=== PATIENT | female | born 1995 | race American Indian/Alaskan Native ===

== ENCOUNTER 2019-07-11 19:18 | Emergency (ER) | payer SELFPAY ==
--- NOTE | 2019-07-11 20:34 | Event Note ---
ED Screening Note Date of service: 07/11/19 Time: 20:32 ED Screening Note: 23 y/o female comes in for abd pain, headache. N/V. LMP 06/11/19. This initial assessment/diagnostic orders/clinical plan/treatment(s) is/are subject to change based on patients health status, clinical progression and re- assessment by fellow clinical providers in the ED. Further treatment and workup at subsequent clinical providers discretion. Patient/guardian urged not to elope from the ED as their condition may be serious if not clinically assessed and managed. Initial orders include:
[2019-07-11 21:10] LABS: Basophils % (Auto) 0.3 % (0.0-1.8); Eosinophils % (Auto) 0.5 % (0.0-4.3); Hematocrit 34.9 % (30.3-42.9); Hemoglobin 11.5 gm/dl (10.1-14.3); Lymphocytes # (Auto) 2.5 K/mm3 (1.2-5.4); Mean Corpuscular HGB Conc 33 % (30-34); Mean Corpuscular Volume 85 fl (79-97); Monocytes # (Auto) 0.3 K/mm3 (0.0-0.8); Monocytes % (Auto) 4.8 % (0.0-7.3); Platelet Count 277 K/mm3 (140-440); Red Blood Count 4.08 M/mm3 (3.65-5.03); Red Cell Distribution Width 14.1 % (13.2-15.2)
[2019-07-11 21:13] LABS: Alanine Aminotransferase 11 units/L (7-56); BUN/Creatinine Ratio 14; Blood Urea Nitrogen 11 mg/dL (7-17); Calcium 8.8 mg/dL (8.4-10.2); Hemolysis Index 1
[2019-07-11 21:32] LABS: Bilirubin,Urine NEG (Negative); Blood,Urine NEG (Negative); Color,Urine Yellow (Yellow); Mucus,Urine 1+ /HPF
--- NOTE | 2019-07-11 22:21 | Emergency Department Report ---
ED General Adult HPI - General Chief complaint: Headache Stated complaint: HEADACHE, NV,ABD PAIN Time Seen by Provider: 07/11/19 20:32 Source: patient Mode of arrival: Ambulatory Limitations: No Limitations - History of Present Illness Initial comments: This is a 23-year-old female. This patient does not smoke to this provider previously. She states that she is not . He states that she has not delivered a given within the past 6 weeks. The patient denies DVT, pulmonary embolism risk factors. The patient presents with 2 complaints. Her first complaint is headache. The headache has been present for approximately 36 hours. The headache is initially global, and is now frontal and bitemporal. The headache has been intermittent since the past day and a half. The headache is not sudden or thunderclap in nature. The headache is not maximal in intensity. She reports a worse headache last year. There is no loss of vision or fever. There is no sore throat. There is no neck pain or neck stiffness. There is no trauma. The patient reports being on her cell phone at least 6 hours per day. She reports that she is up-to-date with visual examinations. She reports that she does not smoke or consume marijuana. She reports that she gets regular sleep. She denies extremity weakness, numbness. The patient's second complaint is belly pain abdominal pain is in epigastric and right upper quadrant region. It is achy and sharp, increases with palpation and decreases with rest. It does not radiate anywhere. Positive intermittent nausea and vomiting. No urinary symptoms. -: Gradual, hour(s), days(s) Location: head, abdomen Radiation: other Severity scale (0 -10): 8 Quality: other Consistency: other Improves with: other Worsens with: other Associated Symptoms: other - Related Data Previous Rx's Medication Instructions Recorded Last Taken Type Acetaminophen [Non-Aspirin Extra 500 mg PO Q6HR PRN #30 tablet 07/12/19 Unknown Rx Strength] Famotidine [Pepcid] 20 mg PO BID #30 tablet 07/12/19 Unknown Rx Metoclopramide [Reglan] 10 mg PO QID PRN #30 tablet 07/12/19 Unknown Rx Allergies Allergy/AdvReac Type Severity Reaction Status Date / Time No Known Allergies Allergy Unverified 07/11/19 20:08 ED Review of Systems ROS: Stated complaint: HEADACHE, NV,ABD PAIN Other details as noted in HPI Constitutional: denies: fever Eyes: denies: eye discharge ENT: denies: as per HPI, throat pain, dental pain Respiratory: denies: cough Cardiovascular: denies: chest pain Gastrointestinal: abdominal pain, nausea, vomiting. denies: diarrhea, constipation Genitourinary: denies: dysuria Musculoskeletal: denies: back pain, arthralgia Skin: denies: lesions Neurological: headache. denies: weakness, numbness, paresthesias, confusion ED Past Medical Hx - Past Medical History Previous Medical History?: No - Surgical History Past Surgical History?: No - Social History Smoking Status: Never Smoker Substance Use Type: None - Medications Home Medications: Home Medications Medication Instructions Recorded Confirmed Last Taken Type Acetaminophen [Non-Aspirin Extra 500 mg PO Q6HR PRN #30 tablet 07/12/19 Unknown Rx Strength] Famotidine [Pepcid] 20 mg PO BID #30 tablet 07/12/19 Unknown Rx Metoclopramide [Reglan] 10 mg PO QID PRN #30 tablet 07/12/19 Unknown Rx ED Physical Exam - General Limitations: No Limitations General appearance: alert, in no apparent distress - Head Head exam: Present: atraumatic, normocephalic - Eye Eye exam: Present: normal appearance, EOMI, other (visual acuity intact to finger counting and color perception at close distance). Absent: nystagmus - ENT ENT exam: Present: normal exam, normal orophraynx, mucous membranes moist, normal external ear exam - Neck Neck exam: Present: normal inspection, full ROM. Absent: tenderness, meningismus - Respiratory Respiratory exam: Present: normal lung sounds bilaterally. Absent: respiratory distress - Cardiovascular Cardiovascular Exam: Present: regular rate, normal rhythm, normal heart sounds. Absent: bradycardia, tachycardia, irregular rhythm, systolic murmur, diastolic murmur, rubs, gallop - GI/Abdominal GI/Abdominal exam: Present: soft, tenderness, other (there is epigastric and upper quadrant tenderness. There is negative Falcon sign. There is no rebound, guarding or peritoneal sign.). Absent: distended, guarding, rebound, rigid, pulsatile mass - Extremities Exam Extremities exam: Present: normal inspection, full ROM, other (2+ pulses noted in the bilateral upper, lower extremities. There is no long bony tenderness. The pelvis is stable. Muscular compartments are soft.). Absent: pedal edema, joint swelling, calf tenderness - Back Exam Back exam: Present: normal inspection, full ROM. Absent: tenderness, CVA tenderness (R), CVA tenderness (L), paraspinal tenderness, vertebral tenderness - Neurological Exam Neurological exam: Present: alert, oriented X3 (there is no pass pointing. There is normal saqi-ef-mxnx. There is negative pronator drift.), other (there is no facial droop. The tongue is midline. The extraocular movements are intact bilaterally. 5/ 5 strength bilateral upper, lower extremities. Sensation intact to light touch bilateral upper, lower extremities bilaterally. Sensation is intact to light touch in the bilateral V1, V2, V3 distribution.). Absent: motor sensory deficit - Psychiatric Psychiatric exam: Present: normal affect, normal mood - Skin Skin exam: Present: warm, dry, intact, normal color. Absent: rash ED Course Vital Signs 07/11/19 07/11/19 20:32 21:33 Temperature 98.8 F 98.6 F Pulse Rate 66 66 Respiratory 18 16 Rate Blood Pressure 135/87 Blood Pressure 140/71 [Right] O2 Sat by Pulse 100 99 Oximetry - Reevaluation(s) Reevaluation #1: 07/12/19 00:29 Differential diagnosis, including not limited to: Migraine headache, tension headache, cluster headache, headache secondary to excessive cellular phone and computer use, GERD, gastritis, hiatal hernia, pneumonia, pancreatitis, biliary colic, biliary dyskinesia, cyclic vomiting syndrome, cannabinoid hyperemesis syndrome Assessment and plan: 23-year-old female with 2 complaints Complaints #1, headache. Patient is afebrile with reassuring vital signs. Headache by history does not have any red flag qualifiers for potentially dangerous or life-threatening headache. The patient appears to be quite comfortable in his stretcher, and is playing on a cellular phone. We will treat the headache supportively and symptomatically. We will recommend minimizing cell phone use and computer screen exposure. Complaint #2, abdominal pain. The patient is afebrile with reassuring vital signs. Tender in the epigastric and right upper quadrant region. Laboratory studies reviewed and are appreciated. There diagnostically unremarkable. The patient endorses no pulmonary embolism or DVT risk factors, she is low risk by well's criteria, and she is perc negative X-ray the chest unremarkable, right upper quadrant ultrasound is obtained. Urine drug screen reviewed and appreciated, the patient states that she does not smoke any drugs, and she is clinically sober at this time. We will counseling case manager the patient to avoid secondhand exposure and consumption of cannabis. Reevaluation #2: 07/12/19 00:50 X-ray of the chest negative. Right upper quadrant ultrasound negative. Belly soft and benign on repeat examination. Patient states headache resolved. States upper abdominal pain resolved. States nausea has resolved. On reassessment, initially sleeping comfortably on the stretcher, and in no acute distress. We will discharge the patient at this time. Return precautions are reviewed. ED Medical Decision Making - Lab Data Result diagrams: 07/11/19 20:40 07/11/19 20:35 Vital Signs 07/11/19 07/11/19 20:32 21:33 Temperature 98.8 F 98.6 F Pulse Rate 66 66 Respiratory 18 16 Rate Blood Pressure 135/87 Blood Pressure 140/71 [Right] O2 Sat by Pulse 100 99 Oximetry Lab Results 07/11/19 07/11/19 07/11/19 Range/Units 20:35 20:40 20:40 WBC 6.3 (4.5-11.0) K/mm3 RBC 4.08 (3.65-5.03) M/mm3 Hgb 11.5 (10.1-14.3) gm/dl Hct 34.9 (30.3-42.9) % MCV 85 (79-97) fl MCH 28 (28-32) pg MCHC 33 (30-34) % RDW 14.1 (13.2-15.2) % Plt Count 277 (140-440) K/mm3 Lymph % (Auto) 39.0 H (13.4-35.0) % [place] % (Auto) 4.8 (0.0-7.3) % Eos % (Auto) 0.5 (0.0-4.3) % Baso % (Auto) 0.3 (0.0-1.8) % Lymph # 2.5 (1.2-5.4) K/mm3 [place] # 0.3 (0.0-0.8) K/mm3 Eos # 0.0 (0.0-0.4) K/mm3 Baso # 0.0 (0.0-0.1) K/mm3 Seg Neutrophils % 55.4 (40.0-70.0) % Seg Neutrophils # 3.5 (1.8-7.7) K/mm3 Sodium 142 (137-145) mmol/L Potassium 3.8 (3.6-5.0) mmol/L Chloride 105.1 (98-107) mmol/L Carbon Dioxide 27 (22-30) mmol/L Anion Gap 14 mmol/L BUN 11 (7-17) mg/dL Creatinine 0.8 (0.7-1.2) mg/dL Estimated GFR > 60 ml/min BUN/Creatinine Ratio 14 % Glucose 91 (65-100) mg/dL Calcium 8.8 (8.4-10.2) mg/dL Total Bilirubin 0.30 (0.1-1.2) mg/dL AST 12 (5-40) units/L ALT 11 (7-56) units/L Alkaline Phosphatase 49 (35-129) units/L Total Protein 7.4 (6.3-8.2) g/dL Albumin 4.0 (3.9-5) g/dL Albumin/Globulin Ratio 1.2 % Lipase 16 (13-60) units/L HCG, Qual Negative (Negative) Urine Color (Yellow) Urine Turbidity (Clear) Urine pH (5.0-7.0) Ur Specific [place] (1.003-1.030) Urine Protein (Negative) mg/dL Urine Glucose (UA) (Negative) mg/dL Urine Ketones (Negative) mg/dL Urine Blood (Negative) Urine Nitrite (Negative) Urine Bilirubin (Negative) Urine Urobilinogen (<2.0) mg/dL Ur Leukocyte Esterase (Negative) Urine WBC (Auto) (0.0-6.0) /HPF Urine RBC (Auto) (0.0-6.0) /HPF U Epithel Cells (Auto) (0-13.0) /HPF Urine Mucus /HPF Urine Opiates Screen Urine Methadone Screen Ur Barbiturates Screen Ur Phencyclidine Scrn Ur Amphetamines Screen U Benzodiazepines Scrn Urine Cocaine Screen U Marijuana (THC) Screen Drugs of Abuse Note 07/11/19 07/11/19 Range/Units 21:05 22:30 WBC (4.5-11.0) K/mm3 RBC (3.65-5.03) M/mm3 Hgb (10.1-14.3) gm/dl Hct (30.3-42.9) % MCV (79-97) fl MCH (28-32) pg MCHC (30-34) % RDW (13.2-15.2) % Plt Count (140-440) K/mm3 Lymph % (Auto) (13.4-35.0) % [place] % (Auto) (0.0-7.3) % Eos % (Auto) (0.0-4.3) % Baso % (Auto) (0.0-1.8) % Lymph # (1.2-5.4) K/mm3 [place] # (0.0-0.8) K/mm3 Eos # (0.0-0.4) K/mm3 Baso # (0.0-0.1) K/mm3 Seg Neutrophils % (40.0-70.0) % Seg Neutrophils # (1.8-7.7) K/mm3 Sodium (137-145) mmol/L Potassium (3.6-5.0) mmol/L Chloride (98-107) mmol/L Carbon Dioxide (22-30) mmol/L Anion Gap mmol/L BUN (7-17) mg/dL Creatinine (0.7-1.2) mg/dL Estimated GFR ml/min BUN/Creatinine Ratio % Glucose (65-100) mg/dL Calcium (8.4-10.2) mg/dL Total Bilirubin (0.1-1.2) mg/dL AST (5-40) units/L ALT (7-56) units/L Alkaline Phosphatase (35-129) units/L Total Protein (6.3-8.2) g/dL Albumin (3.9-5) g/dL Albumin/Globulin Ratio % Lipase (13-60) units/L HCG, Qual (Negative) Urine Color Yellow (Yellow) Urine Turbidity Clear (Clear) Urine pH 8.0 H (5.0-7.0) Ur Specific [place] 1.030 (1.003-1.030) Urine Protein 30 mg/dl (Negative) mg/dL Urine Glucose (UA) Neg (Negative) mg/dL Urine Ketones Neg (Negative) mg/dL Urine Blood Neg (Negative) Urine Nitrite Neg (Negative) Urine Bilirubin Neg (Negative) Urine Urobilinogen 4.0 (<2.0) mg/dL Ur Leukocyte Esterase Neg (Negative) Urine WBC (Auto) 1.0 (0.0-6.0) /HPF Urine RBC (Auto) 2.0 (0.0-6.0) /HPF U Epithel Cells (Auto) 5.0 (0-13.0) /HPF Urine Mucus 1+ /HPF Urine Opiates Screen Presumptive negative Urine Methadone Screen Presumptive negative Ur Barbiturates Screen Presumptive negative Ur Phencyclidine Scrn Presumptive negative Ur Amphetamines Screen Presumptive negative U Benzodiazepines Scrn Presumptive negative Urine Cocaine Screen Presumptive negative U Marijuana (THC) Screen Presumptive positive Drugs of Abuse Note Disclamer - EKG Data -: EKG Interpreted by Vt EKG shows normal: sinus rhythm, axis, intervals, QRS complexes, ST-T waves Rate: normal - EKG Data When compared to previous EKG there are: previous EKG unavailable Interpretation: normal EKG - Radiology Data Radiology results: report reviewed, image reviewed Print Report Referring Physician: SONAM CHRISTINE Patient Name: CATY BORJAS Date of : 1995 Sex: Female Report Date: 2019-07-11 Report Status: Finalized Findings [facility] [address] [place] [address] XRay Report Signed Patient: CATY BORJAS MR# : [id number] : 1995 Acct:[id number] Age/Sex: 23 / F ADM Date: 07/11/19 Loc: ED Attending Dr: Ordering Physician: SONAM CHRISTINE MD Date of Service: 07/11/19 Procedure(s): XR chest 1V ap Accession Number(s): [id number] cc: SONAM CHRISTINE MD Fluoro Time In Minutes: CHEST 1 VIEW 11:07 PM INDICATION / CLINICAL INFORMATION: Right upper quadrant and epigastric pain. Right headache with nausea and vomiting since last night. COMPARISON: None available. FINDINGS: SUPPORT DEVICES: None. HEART / MEDIASTINUM: The heart size and pulmonary vasculature are normal. The aorta is normal in caliber. LUNGS / PLEURA: No significant pulmonary or pleural abnormality. No pneumothorax. ADDITIONAL FINDINGS: The visualized upper abdomen is unremarkable. IMPRESSION: No acute findings. Signer Name: Eugene Rogel MD Signed: 07/11/2019 11:35 PM Workstation Name: [id number] Transcribed By: RT Dictated By: Eugene Rogel MD Electronically Authenticated By: Eugene Rogel MD Signed Date/Time: 07/11/19 9827 Critical care attestation.: If time is entered above; I have spent that time in minutes in the direct care of this critically ill patient, excluding procedure time. ED Disposition Clinical Impression: Headache, Abdominal pain Disposition: DC-01 TO HOME OR SELFCARE Is pt being admited?: No Does the pt Need Aspirin: No Condition: Good Additional Instructions: Advance diet as tolerated. Avoid consumption of Motrin, ibuprofen, Naprosyn, Aleve, heavy, spicy foods. Urinalysis demonstrated presence of marijuana and/or marijuana metabolites. Recommend patient avoid exposure to this, as it may exacerbate headache and nausea, vomiting. Take the pain medication, nausea medication as needed/di rected. Make certain to get at least 7-8 hours of good quality uninterrupted sleep every night, make certain to minimize cell phone use an computer screen exposure, except as needed for work, school, essential tasks, and make certain to wear glasses or contact lenses, if they've been prescribed. Follow up with the primary care doctor within the next month. Return to the emergency room right away or projectile vomiting, change in mental status, confusion, inability to tolerate liquid feeds, new, worsening or different symptoms not present on the initial emergency room evaluation. Referrals: DANIELLE PARKER MD [Primary Care Provider] - 3-5 Days Forms: Work/School Release Form(ED)
[2019-07-11] MEDS ORDERED: NACL 0.9% 1000 ML 1,000 ML IV ONE (22:49)
[2019-07-11] MEDS ORDERED: BENADRYL IV ONE (22:49)
[2019-07-11] MEDS ORDERED: PEPCID IV ONE (22:49)
[2019-07-11] MEDS ORDERED: REGLAN IV ONE (22:50)
[2019-07-11] MEDS ORDERED: XYLOCAINE TOPICAL 4% TP ONE (22:50)
[2019-07-11 22:51] LABS: Amphetamine Screen,Urine PRESUMPTIVE NEGATIVE; Benzodiazepines Screen,Urine PRESUMPTIVE NEGATIVE; Cocaine Screen,Urine PRESUMPTIVE NEGATIVE; Methadone Screen,Urine PRESUMPTIVE NEGATIVE; Opiate Screen,Urine PRESUMPTIVE NEGATIVE
[2019-07-11 23:31] LABS: Cannabinoid Screen,Urine PRESUMPTIVE POSITIVE
--- NOTE | 2019-07-11 23:39 | XRay Report ---
CHEST 1 VIEW 11:07 PM INDICATION / CLINICAL INFORMATION: Right upper quadrant and epigastric pain. Right headache with nausea and vomiting since last night. COMPARISON: None available. FINDINGS: SUPPORT DEVICES: None. HEART / MEDIASTINUM: The heart size and pulmonary vasculature are normal. The aorta is normal in [place]. LUNGS / PLEURA: No significant pulmonary or pleural abnormality. No pneumothorax. ADDITIONAL FINDINGS: The visualized upper abdomen is unremarkable. IMPRESSION: No acute findings. Signer Name: Eugene Rogel MD Signed: 07/11/2019 11:35 PM Workstation Name: [id number]
--- NOTE | 2019-07-12 00:31 | Ultrasound Report ---
ULTRASOUND ABDOMEN, LIMITED (RIGHT UPPER QUADRANT) INDICATION: Right upper quadrant pain with nausea and vomiting for 2 days. COMPARISON: None available. FINDINGS: PANCREAS: Visualized portion shows no significant abnormality. LIVER: No significant abnormality. GALLBLADDER: No significant abnormality. BILE DUCTS: No significant abnormality. Common bile duct measures 3.4 mm. FREE FLUID: None. ADDITIONAL FINDINGS: Images of the right kidney are normal. IMPRESSION: No significant sonographic abnormality of the right upper quadrant. Signer Name: Eugene Rogel MD Signed: 07/12/2019 12:26 AM Workstation Name: [id number]
[2019-07-12 03:11] VITALS: BP 139/80
== END 2019-07-12 02:45 | disposition home or self-care (01) ==
LOC: ED 19:18
DX: R10.11 Right upper quadrant pain (principal); R11.2 Nausea with vomiting, unspecified; R51 Headache
CPT/HCPCS: 36415; 71045; 76705; 80053; 80307; 81001; 83690; 84703; 85025; 93005; 93010; 96367; 96374; 96375; 99284; J1200; J2765; J7030